=== PATIENT | female | born 1965 | race Caucasian/White ===

== ENCOUNTER 2017-07-20 22:28 | Inpatient (IN) | END 2017-07-24 19:30 | disposition short-term general hospital (02) | DRG 871 ==

== ENCOUNTER 2017-09-08 22:24 | Inpatient (IN) | END 2017-09-13 18:33 | disposition home or self-care (01) | DRG 854 ==

== ENCOUNTER 2018-10-27 19:12 | Emergency (ER) | payer OTHER ==
[~2018-10-27] VITALS: Ht 162.6 cm; Wt 63.0 kg
[~2018-10-27 19:12] MED LIST: HYDR-3601 PO; LEVO250T22 PO
[2018-10-27 19:20] VITALS: Ht 162.6 cm; Wt 63.0 kg
[2018-10-27] MEDS ORDERED: HYDR-4011 PO (22:42)
[2018-10-27] MEDS ORDERED: NAPR-985 PO (22:42)
[2018-10-27 22:57] VITALS: BP 144/71; PULSE 80; RESP 20
--- NOTE | 2018-10-27 23:59 | ERD ---
ER Documentation Chief Complaint Chief Complaint pt reports she "kneed" herself in stomach 2 days ago and it still hurts HPI 53-year-old female presenting with right-sided rib pain after she need herself in the ribs 2 days ago. She has not taken medications for her symptoms. She has some pain with palpating over the right side of her ribs. Denies any other medical problems. NKDA. Surgical history kidney surgery. Social history denies ROS All systems reviewed and are negative except as per history of present illness. Medications Home Meds Active Scripts Hydrocodone/Acetaminophen ([place] 5-325 Tablet) 1 Each Tablet, 1 TAB PO Q6H PRN for PAIN, #7 TAB Prov:BESS LALA PA-C 10/27/18 Naproxen* (Naprosyn*) 500 Mg Tablet, 500 MG PO BID PRN for PAIN AND/OR INFLAMMATION, #30 TAB Prov:BESS LALA PA-C 10/27/18 Levofloxacin* (Levaquin*) 250 Mg Tablet, 250 MG PO DAILY for 5 Days, TAB Prov:GABRIELA HANDY MD 09/13/17 Hydrocodone Bit-Acetaminophen (Hydrocodone Bit-APAP) 5-325MG Tablet, 1 TAB PO Q6H PRN for MODERATE PAIN LEVEL 4-6, #30 TAB Prov:GABRIELA HANDY MD 09/13/17 Allergies Allergies: Coded Allergies: No Known Allergy (Unverified , 09/08/17) PMhx/Soc Medical and Surgical Hx: pt denies Medical Hx History of Surgery: Yes Anesthesia Reaction: No Hx Neurological Disorder: No Hx Respiratory Disorders: No Hx Cardiac Disorders: No Hx Psychiatric Problems: No Hx Miscellaneous Medical Probl: No Hx Alcohol Use: No Hx Substance Use: No Hx Tobacco Use: No Smoking Status: Never smoker FmHx Family History: No diabetes, No coronary disease, No other Physical Exam Vitals Vital Signs Date Temp Pulse Resp B/P (MAP) Pulse Ox O2 O2 Flow FiO2 Time Delivery Rate 10/27/18 99.1 80 20 144/71 99 Room Air 22:57 (95) 10/27/18 99.1 100 20 154/73 99 19:20 (100) Physical Exam GENERAL: The patient is well-appearing, well-nourished, in no acute distress HEENT: Atraumatic. Conjunctivae are pink. Pupils equal, round, and reactive to light. There is no scleral icterus. Tympanic membranes clear bilaterally. Oropharynx clear. NECK: C-spine is soft and supple. There is no meningismus. There is no cervical lymphadenopathy. CHEST: Clear to auscultation bilaterally. There are no rales, wheezes or rhonchi. Tender to palpation over the right rib space. HEART: Regular rate and rhythm. No murmurs, clicks, rubs or gallops. SKIN: No contusions lacerations or abrasions noted over the right rib space. Procedures/MDM DIAGNOSTIC IMAGING REPORT Patient: ASH IBARRA : 1965 Age: 53 Sex: F MR #: [id number] DOS: 10/27/181947 Ordering MD: SASCHA LALA PA-C Location: [facility] Room/Bed: PROCEDURE: XR Chest. CLINICAL INDICATION: Chest pain. TECHNIQUE: Single frontal view of the chest. COMPARISON: Plain film examination the chest dated 11/08/2014. FINDINGS: The cardiomediastinal silhouette is within normal limits. The lungs are clear. No signs of pleural fluid or pneumothorax are seen. There is no evident acute fracture on this limited series. The osseous structures and soft tissues are unremarkable. There is no significant change in appearance of the chest radiograph over the interval since prior plain film chest dated 11/08/2014. IMPRESSION: No evidence for active cardiopulmonary disease. DIAGNOSTIC IMAGING REPORT Patient: ASH IBARRA : 1965 Age: 53 Sex: F MR #: [id number] DOS: 10/27/181947 Ordering MD: SASCHA LALA PA-C Location: [facility] Room/Bed: PROCEDURE: XR ribs . CLINICAL INDICATION: Right rib pain. TECHNIQUE: AP and oblique views of the right ribs were obtained. COMPARISON: None FINDINGS: The bone mineralization is normal. There is no acute fracture or subluxation. The soft tissues are unremarkable. IMPRESSION: No acute fracture. MDM: 53-year-old female presenting with rib contusion. I have low suspicion for acute fracture dislocation. I have low suspicion for pulmonary abnormality. Patient is discharged with strict ER precautions and told to follow-up with primary care within 1 to 2 days for close evaluation. Patient is told symptoms change or worsen to return immediately to the ER. All questions answered at discharge Departure Diagnosis: Primary Impression: Rib contusion Condition: Stable Patient Instructions: Rib Contusion Referrals: [facility] YOU HAVE RECEIVED A MEDICAL SCREENING EXAM AND THE RESULTS INDICATE THAT YOU DO NOT HAVE A CONDITION THAT REQUIRES URGENT TREATMENT IN THE EMERGENCY DEPARTMENT. FURTHER EVALUATION AND TREATMENT OF YOUR CONDITION CAN WAIT UNTIL YOU ARE SEEN IN YOUR DOCTORS OFFICE WITHIN THE NEXT 1-2 DAYS. IT IS YOUR RESPONSIBILITY TO MAKE AN APPOINTMENT FOR FOLOW-UP CARE. IF YOU HAVE A PRIMARY DOCTOR --you should call your primary doctor and schedule an appointment IF YOU DO NOT HAVE A PRIMARY DOCTOR YOU CAN CALL OUR PHYSICIAN REFERRAL HOTLINE AT IF YOU CAN NOT AFFORD TO SEE A PHYSICIAN YOU CAN CHOSE FROM THE FOLLOWING [facility] [address] [facility] [facility] [address] [facility] [facility] [address] [facility] [address] [facility] [address] [facility]. [facility] [address] Additional Instructions: FOLLOW UP WITH YOUR PRIMARY CARE PHYSICIAN TOMORROW.Return to this facility if you are not improving as expected. BESS LALA PA-C Oct 27, 2018 23:59
== END 2018-10-27 22:58 | disposition home or self-care (01) ==
LOC: FTE 19:12
DX: S20.211A Contusion of right front wall of thorax, initial encounter (principal); X58.XXXA Exposure to other specified factors, initial encounter; Y92.9 Unspecified place or not applicable
CPT/HCPCS: 71045; 71100; Z7502